=== PATIENT | male | born 1940 | race Caucasian/White ===

== ENCOUNTER 2020-06-19 01:25 | Outpatient (CLI) | payer MEDICARE, SELFPAY ==
[2020-06-19 19:24] LABS: SARS-CoV-2 RNA PCR Negative
== END 2020-06-19 01:26 | disposition home or self-care (01) ==
LOC: ANHCOVIDDT 01:26
PROVIDERS: Visit Provider Urology
DX: Z01.812 Encounter for preprocedural laboratory examination (principal); Z20.828 Contact with and (suspected) exposure to other viral communicable diseases
CPT/HCPCS: 87635; C9803; U0003

== ENCOUNTER 2020-06-19 09:30 | Outpatient (CLI) | payer MEDICARE, SELFPAY ==
--- NOTE | 2020-06-19 09:39 | ECG_ITS ---
Measurements Intervals Imperial Rate: 63 P: 20 WA: 203 QRS: -30 QRSD: 101 T: 41 QT: 383 QTc: 393 Interpretive Statements SINUS RHYTHM INCOMPLETE RIGHT BUNDLE BRANCH BLOCK BASELINE ARTIFACT- I, II, III, AVR, AVL, AVF, V1 BORDERLINE ECG Electronically Signed On 06-19-2020 9:53:46 CDT by Mukesh Freed D.O.
== END 2020-06-19 09:31 | disposition home or self-care (01) ==
LOC: ANHSURGERY 09:38
PROVIDERS: PCP Family Medicine; Visit Provider Urology
DX: I10 Essential (primary) hypertension (principal); Z01.818 Encounter for other preprocedural examination; I45.10 Unspecified right bundle-branch block
CPT/HCPCS: 87635; 93005; C9803; U0003

== ENCOUNTER 2020-06-21 00:45 | Day surgery (SDC) | payer MEDICARE, SELFPAY ==
[2020-06-15 13:04] VITALS: BMI 30.4
--- NOTE | 2020-06-18 08:01 | PM.HPGS ---
History of Present Illness History of Present Illness Consent: Risks, benefits, and alternatives have been discussed and questions answered. Patient agrees to proceed with procedure. Chief complaint: Prostate Ca Narrative: Rubin Junior is a 79 year old male with clinically localize adenocarcinoma of prostate, scheduled for definitive pelvic IMRT. He's opted for placement of SpaceOAR to minimize risk of rectal irritation. PSA: 10.0. Referred by Dr. Margarito Raphael. [facility] Social History Social History Smoking status: Former smoker Tobacco type: pipe and cigars Smoking end date: 09/21/85 Spiritual care concerns: No Meds Home Medications and Allergies Home Medications Medication Instructions Recorded Confirmed Type aspirin [Adult Low Dose Aspirin] 81 mg PO HS 06/15/20 06/15/20 History atorvastatin 20 mg PO HS 06/15/20 06/15/20 History enalapril maleate 10 mg PO HS 06/15/20 06/15/20 History Allergies Allergy/AdvReac Type Severity Reaction Status Date / Time codeine Allergy Unknown Hallucinati Verified 06/15/20 12:59 ng Exam Const: General: no acute distress Resp: Effort & Inspection: normal respiratory effort GI: Inspection: non-distended GI Palp: No abdominal tenderness and No Guarding due to palpation present (GI) Auscultation: normal bowel sounds Assessment and Plan Assessment and plan (1) Prostate cancer: Code(s): C61 - Malignant neoplasm of prostate Status: Acute Assessment and Plan: Transrectal ultrasound with transperineal placement of SpaceOAR. Pt. aware of risks of this procedure including, but not limited to, rectal injury, urinary tract infection with possible sepsis or septic shock, hematuria and inability to deliver the SpaceOAR. He also aware there is no alternative procedure to accomplish the same ends at this time.
--- NOTE | 2020-06-21 06:50 | WPDHPUPDATE1 ---
History and Physical Update Update Date/Time: 06/21/20 06:50 History and Physical has been reviewed, including an updated exam of the patient. There are NO changes in the patient's condition. Risks, benefits, and alternatives have been discussed and questions answered. Patient agrees to proceed with procedure.
[2020-06-21] MEDS: LACTATED RINGERS 1,000 ML 30 ML IV CONT (11:00)
--- NOTE | 2020-06-21 11:09 | WPDANESEPPF ---
Anes - Initial Pre Proc Eval Procedure: Operation Date: 06/21/20 12:00 Proposed Procedures p Insertion SpaceOAR Hydrogel System - Max Delacruz MD Date/Time: 06/21/20 11:09 Surgeon: Max Delacruz MD Pre Op Diagnosis: Prostate Ca Patient Data Age: 79 Gender: M Height: 5 ft 8 in Weight: 90.75 kg Allergies Allergy/AdvReac Type Severity Reaction Status Date / Time codeine Allergy Unknown Hallucinati Verified 06/15/20 12:59 ng Home Medications Medication Instructions Recorded Confirmed Type aspirin [Adult Low Dose Aspirin] 81 mg PO HS 06/15/20 06/15/20 History atorvastatin 20 mg PO HS 06/15/20 06/15/20 History enalapril maleate 10 mg PO HS 06/15/20 06/15/20 History Patient hx anesthesia problems: none Family hx anesthesia problems: none [facility] Past Medical History Medical History (Updated 06/21/20 @ 11:10 by Elías Ordoñez MD) Hyperlipidemia Hypertension Prostate cancer Social History Social History Smoking status: Former smoker Tobacco type: pipe and cigars Smoking end date: 09/21/85 Living arrangements: with family Spiritual care concerns: No Anes - Eval Final PreProcedure Day of Procedure 06/21/20 11:09 Patient weight: obese Heart: regular rate and rhythm Lungs: clear to auscultation Airway: Mallampati scale class II Neurological: alert and oriented Last oral intake: >/= 8 hours ASA classification: III Emergent: no Anesthetic plan: proceed Anesthesia type and monitoring: general GIVS and standard monitoring Informed Consent: The patient's anesthetic plan and its attendant risks and benefits were discussed with the patient/family/POA. Questions were solicited and answers provided to the satisfaction of the patient/family/POA.
[2020-06-21 12:02] VITALS: BP 150/73; PULSE 64; RESP 18; TEMP 36.2; O2SAT 100
[2020-06-21] MEDS: ceFAZolin 2 GM/D5W 50 ML 2 GM/50 ML BAG IVPB (12:04)
[2020-06-21 12:33] VITALS: BP 148/87; PULSE 85; RESP 12; O2SAT 96
--- NOTE | 2020-06-21 12:34 | PM.PROC ---
Procedure Note - Detailed Date of procedure: 06/21/20 Pre-op diagnosis: Prostate Ca Post-op diagnosis: same Procedure performed: Placement SpaceOAR Description of procedure: This patient has been diagnosed with prostate cancer. Patient has met with a radiation oncologist who has prescribed a course of radiation for treatment of the malignancy. Please refer to the Radiation Oncologist's note for radiation method, dose, number of fractions. After discussing with the radiation oncologist and the patient, it has been agreed upon to proceed with SpaceOAR placement. The purpose of SpaceOAR is to reduce rectal irradiation during radiation therapy by placing an absorbable polyethylene glycol (PEG) hydrogel (SpaceOAR) into perirectal fat space, thereby pushing the rectum away from the prostate. Prior to the procedure, a timeout was performed confirming the patient's identity and planned the procedure. Anesthesia was induced without complication. Antibiotics were administered prophylactically, and the patient completed an enema at home prior to the procedure. The patient was positioned in the dorsal lithotomy position. A transrectal ultrasound probe was inserted per rectum with clear visualization of the prostatic base and apex. SpaceOAR hydrogel was prepared as described in the clinical biostatistics director?s 'Instructions For Use'. Under transrectal ultrasound guidance, a 15 cm 18G needle was inserted, transperineal, through the rectourethralis muscle and the needle tip advanced into the perirectal fat posterior to the prostate. The needle position, and downward bevel, were confirmed in both sagittal and axial panda. 3-5cc of Sterile Saline was used to hydro-dissect the space between the Denonvilliers? fascia and anterior rectal wall. Aspiration did not yield any bleeding. With the needle tip at mid gland, the axial field was viewed to confirm the needle was not in the rectal wall -- movement of the needle tip without corresponding movement of the rectal wall confirmed perirectal placement. The assembled SpaceOAR delivery system was then attached to the 18G needle. Under ultrasound guidance in the sagittal plane, a smooth, continuous injection technique was used to dispense all 10cc of the SpaceOAR hydrogel into the space between the prostate and rectum. Optimal visualization of the needle during hydrogel administration was maintained at all times. An axial measurement of the space between the prostate (mid gland) and rectum immediately post-SpaceOAR injection was noted and measured [96mm]. No suspected penetration or compromise of the rectal wall occurred. Anesthesia: GLMA Surgeon: Max Delacruz MD Estimated blood loss (mL): 0 Drains: No Packing: No Pathology: none sent Complications: No immediate complications Condition: stable Disposition: PACU
[2020-06-21 13:00] VITALS: BP 147/63; PULSE 80; RESP 14
== END 2020-06-21 13:21 | disposition home or self-care (01) ==
PROVIDERS: PCP Family Medicine; Visit Provider Urology
PROC: (CPT 55874; principal; 2020-06-21 12:00)
DX: C61 Malignant neoplasm of prostate (principal); I10 Essential (primary) hypertension; E78.5 Hyperlipidemia, unspecified; Z79.82 Long term (current) use of aspirin; Z87.891 Personal history of nicotine dependence
CPT/HCPCS: 55874; A9270; C1889; J0690; J2704; J3010; J7120

== ENCOUNTER 2022-11-26 01:02 | Day surgery (SDC) | payer MEDICARE, SELFPAY ==
--- NOTE | 2022-11-20 15:31 | PC.NURSE ---
Report to the Outpatient Waiting Room, entrance under the green pavilion located off [facility], at time ___829____ on date __11/26/22 . Planned Procedure Time: . Time changes happen often and if your time is changed the preop area will call you the afternoon before. - You and your visitor will be asked to self-screen and do not enter if you have any COVID symptoms. - Only one visitor is requested with a max of two and NO children visitors are allowed at this time. - The patient visitor may be requested to leave or wait in car when not with patient due to distancing restrictions. - A mask is optional within the hospital at this time. LIGHT BREAKFAST Patients may have clear liquids (water, carbonated beverages, clear teas, apple juice) until 3 hours prior to surgery with a maximum of 20 ounces. - No food from midnight until time of surgery - Infants may have breast milk until 4 hours before surgery, infant formula 6 hours prior to surgery. - Children will be allowed to drink immediately following surgery. If applicable, please bring a bottle or sippy cup to assist with drinking. Juice, water, soda, and popsicles are readily available. For infants on formula, please bring formula the day of surgery. Pacifiers are allowed. Take the following medications with a SIP of water the morning of surgery: ___NONE DO NOT STOP ANY OF YOUR OTHER PRESCRIPTION MEDICATIONS PRIOR TO SURGERY ?EXCEPT THE FOLLOWING Medications to discontinue per physician NONE Please no make-up, nail greenlandic, hairspray, perfume, deodorant, or body powder the day of surgery. No jewelry (including any body piercings) or valuables the day of surgery, leave them at home. Please take a shower or bath the night before, or the morning of, surgery with an antibacterial soap. Wear comfortable, loose fitting clothing. Children are encouraged to wear pajamas. - Jewelry must be removed prior to entering the operating room. Rings and piercings that are not removed may be cut off. - The hospital will not accept responsibility for valuables. - Please leave all valuables, including medications, at home the day of surgery. If you are going home after surgery, a licensed commercial front load driver must drive you home. - NO public transportation without another adult if you receive anesthesia. - We recommend that an adult stay with you for 24 hours following discharge. - We also recommend that you do not drive, make important decision, drink alcoholic beverages, or take any drugs that were not prescribed by your health care provider for at least 24 hours after your discharge time. Follow any additional instructions given to you from your surgeon. If you or anyone in your household have experienced Covid symptoms in the past week, please notify your surgeon or the nurse liaison at the phone number below for possible testing. Telephone instructions given to ___PATIENT and asked if any additional questions and then verbalized understanding. Patient advised to call surgeon office or pre surgery nurse liaison [phone] if any additional questions.
[2022-11-20 15:41] VITALS: BMI 32.7
[2022-11-26] VITALS (8 sets, daily range): BP systolic 148–183; BP diastolic 74–91; PULSE 58–95; RESP 16–20; TEMP 36.3; O2SAT 96–100; BMI 33.0
--- NOTE | 2022-11-26 09:09 | WPDHPUPDATE1 ---
History and Physical Update Update Date/Time: 11/26/22 09:09 History and Physical has been reviewed, including an updated exam of the patient. There are NO changes in the patient's condition. Risks, benefits, and alternatives have been discussed and questions answered. Patient agrees to proceed with procedure.
[2022-11-26] MEDS: LIDO 1%/EPINEPHRINE 1:100,000 20 ML VIAL 10 ML INFILTRATE (09:52)
--- NOTE | 2022-11-26 10:41 | W.PM.PROC2 ---
Procedure Note - Detailed Date of Procedure 11/26/22 Pre-op Diagnosis Basal Cell Ca Right Nasal Ala Post-op Diagnosis Same Procedure Performed Shave excision of BCC of right nasal ala with FS and dressing. Surgeon Hesham Vidal MD Anesthesia Local Indications Biopsy basal cell carcinoma Findings No residual tumor Description of Procedure The site on the patient's right nasal ala was marked with his consent in the holding area. We discussed once again the diagnosis and our plan for this surgery. I tried to outline for them the concept of a bilobed flap if it were to be necessary. He was taken to the operating where he was placed supine on the operating table. The face and right side of his neck were prepped and draped in usual fashion. The site was carefully examined once again the Betadine was washed off to allow better appreciation of the quality of the skin. This area was infiltrated with 1% lidocaine with epinephrine, starting with an infraorbital nerve block. The site was carefully examined once again and we determined to erin the vertical extent of the mass. I elected at that point to do a shave excision to further ascertain the character of the skin. The specimen was marked at the inferior aspect near the nasal ala with a suture for 12 o'clock. Specimen was sent for frozen section. The pathologist revealed that some inflammation was noted in this tissue but no cancer. The appearance of the tissue under the shave biopsy site was fatty with multiple, fine vascular structures running throughout. 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 These areas sites were cauterized on a low setting. Some bacitracin ointment was applied. Patient was advised of the decision making and was discharged from the operating room in stable condition Estimated Blood Loss 1 Drains No Packing No Pathology Yes Complications No immediate complications Condition Stable Disposition Same day
--- NOTE | 2022-11-26 10:44 | SUR.PHASEII ---
1044 - DR. GARZA IN ROOM TALKING WITH PT.
== END 2022-11-26 10:50 | disposition home or self-care (01) ==
PROVIDERS: PCP Physician Assistant; Visit Provider Plastic Surgery
PROC: (CPT 11642; principal; 2022-11-26 09:30)
DX: C44.311 Basal cell carcinoma of skin of nose (principal)
CPT/HCPCS: 11642; 88305; 88331; 88342; A9270